=== PATIENT | female | born 1980 | race Caucasian/White ===

== ENCOUNTER 2018-11-28 08:04 | Outpatient (CLI) | payer OTHER ==
--- NOTE | 2018-11-28 09:26 | RAD ---
PELVIS AP STANDARD: History: Sciatica on the right side. Comparison: None. FINDINGS: There is an intrauterine device. There is os acetabula bilaterally. SI joints are normal. No lumbosacral transitional vertebrae. Pubic symphysis is normal. Obturator rings are intact. Femoral heads and necks are intact. Small femo ral head/neck osteophytes bilaterally with synovial herniation pits of both femoral necks. IMPRESSION: No acute abnormality. POS: CET
--- NOTE | 2018-11-28 09:35 | RAD ---
LUMBAR SPINE FOUR VIEWS: History: Sciatica on the right. Comparison: None. FINDINGS: Five non-rib bearing lumbar type vertebrae. Mild dextroscoliosis of the lumbar spine. No acute fracture. Minimal facet arthropathy on the left at L5-S1. There is relatively normal appeara nce of the SI joints. No abnormal calcifications projecting over the renal shadows. Minimal degenerative disc space height loss posteriorly at L5-S1. IMPRESSION: Mild dextroscoliosis with subsequent asymmetric left sided facet arthropathy L5-S1. POS: CET
--- NOTE | 2018-11-28 09:43 | RAD ---
XRAY SACRUM AND COCCYX STANDARD: HISTORY: Sciatica. COMPARISON: None. FINDINGS: There is an intrauterine device in place. Mild asymmetric left L5-S1 facet arthropathy. SI joints a re unremarkable. Visualized portions of obturator rings are intact. IMPRESSION: Mild asymmetric left-sided L5-S1 facet arthropathy due to the dextroscoliosis. POS: CET
== END 2018-11-28 08:05 | disposition home or self-care (01) ==
LOC: BICRAD 08:04
PROVIDERS: ATTEND Chiropractor Sports Physician
DX: M54.31 Sciatica, right side (principal); M46.97 Unspecified inflammatory spondylopathy, lumbosacral region; M41.9 Scoliosis, unspecified
CPT/HCPCS: 72110; 72170; 72220